=== PATIENT | female | born 1965 | race Caucasian/White ===

== ENCOUNTER → 2018-11-27 | Outpatient (CLI) | payer OTHER ==
[2015-08-11 14:38] VITALS: BP 150/79
[~2018-11-27] MED LIST: ASPI-630 PO; BIOT25006 PO; DILT120C71 PO; DILT240C32 PO; Diltiazem Hcl PO; FLEC50TA PO; LISI2.5T PO; NAPR220T70 PO; OMEP20CA10 PO; PNV1TABL25 PO; PNV1TABL74 PO; ZOLP10TA PO
--- NOTE | 2018-11-27 14:00 | CARD ---
MR#: [id number] Date of Study: 11/27/2018 Ordering Physician: MIRANDA CORONA, Referring Physician: MIRANDA CORONA Tech: Sharlene Thomas EMILE APPROVED REPORT EXAM: Two-dimensional and M-mode echocardiogram with Doppler and color Doppler. Other Information Quality : AverageHR: 60bpm Rhythm : NSRTechnically limited study due to breast surgery. INDICATION Atrial Fibrillation 2D DIMENSIONS RVDd3.4 (2.9-3.5cm)Left Atrium(2D)3.9 (1.6-4.0cm) IVSd1.1 (0.7-1.1cm)Aortic Root(2D)2.8 (2.0-3.7cm) LVDd5.3 (3.9-5.9cm)LVOT Diameter1.9 (1.8-2.4cm) PWd0.8 (0.7-1.1cm)LVDs3.3 (2.5-4.0cm) FS (%) 38.5 %SV94.0 ml LVEF(%)65.0 (>50%) Aortic Valve AoV Peak Gautam.151.0cm/sAoV VTI35.2cm AO Peak GR.9.1mmHgLVOT Peak Gautam.99.7cm/s AO Mean GR.5mmHgAVA (VMAX)1.89cm2 CONOR (VTI)1.90cm2 Mitral Valve MV E Klmocuzv340.9cm/sMV DECEL [id number] MV A Rjjmoozd44.9cm/sE/A Ratio1.3 MV A [id number] Pulmonary Valve PV Peak Bpvardks907.3cm/s Tricuspid Valve TR P. Grxodgrz668zb/sRAP NYOSSPDU8hnLx TR Peak Gr.12ljObTHDT26kpVy LEFT VENTRICLE The left ventricle is normal size. Proximal septal thickening is noted. The left ventricular systolic function is normal. The Ejection Fraction is 60-65%. There is normal LV segmental wall motion. Trans mitral Doppler flow pattern is Grade II-pseudonormal filling dynamics. RIGHT VENTRICLE The right ventricle is normal size. There is normal right ventricular wall thickness. The right ventr icular systolic function is normal. ATRIA The left atrium is borderline dilated. The right atrium size is normal. The interatrial septum is int act with no evidence for an atrial septal defect or patent foramen ovale as noted on 2-D or Doppler i adan. AORTIC VALVE The aortic valve is normal in structure and function. The aortic valve is trileaflet. Doppler and Col or Flow revealed no significant aortic regurgitation. There is no significant aortic valvular stenosi s. There is no aortic valvular vegetation. MITRAL VALVE The mitral valve is normal in structure and function. There is no evidence of mitral valve prolapse. There is no mitral valve stenosis. Doppler and Color-flow revealed trace mitral regurgitation. TRICUSPID VALVE The tricuspid valve is normal in structure and function. Doppler and Color Flow revealed trace tricus pid regurgitation. The PA pressure was estimated at 29 mmHg. There is no tricuspid valve prolapse or vegetation. There is no tricuspid valve stenosis. PULMONIC VALVE The pulmonary valve is normal in structure and function. Doppler and Color Flow revealed trace pulmon ic valvular regurgitation. There is no pulmonic valvular stenosis. GREAT VESSELS The aortic root is normal in size. The ascending aorta is normal in size. The IVC is normal in size a nd collapses >50% with inspiration. PERICARDIAL EFFUSION There is no evidence of significant pericardial effusion. Critical Notification Critical Value: No <Conclusion> The left ventricular systolic function is normal. The Ejection Fraction is 60-65%. There is normal LV segmental wall motion. Trace mitral regurgitation. Trace tricuspid regurgitation. The PA pressure was estimated at 29 mmHg. There is no evidence of significant pericardial effusion. Signed by : Miranda Corona, Electronically Approved : 11/27/2018 13:59:41
== END | disposition home or self-care (01) ==
LOC: ECHO 13:09
PROVIDERS: ATTEND Internal Medicine Cardiovascular Disease
DX: I48.0 Paroxysmal atrial fibrillation (principal)
CPT/HCPCS: 93306